=== PATIENT | female | born 1975 | race Two or more races ===

== ENCOUNTER → 2021-08-31 | Outpatient (CLI) | payer BC ==
[~2021-08-31] MED LIST: IBUP-1027 PO; OXYC-325 PO
== END ==
LOC: LAB 14:38
PROVIDERS: ATTEND Surgery
DX: Z01.812 Encounter for preprocedural laboratory examination (principal); Z20.822 Contact with and (suspected) exposure to COVID-19; K43.9 Ventral hernia without obstruction or gangrene
CPT/HCPCS: U0003; U0005

== ENCOUNTER 2021-09-03 11:28 | Day surgery (SDC) | payer BC ==
[~2021-09-03] VITALS: Ht 154.9 cm; Wt 85.0 kg
[~2021-09-03 11:28] MED LIST changes: +HYDROmorphone 2 MG/ML INJ. IVP PRN; +IV RINGERS,LACTATED 1000ML 1,000 ML IV SCH; +MORPHINE SULFATE 2 MG/ML INJ. IVP PRN; -OXYC-325 PO; +PROCHLORPERAZINE 10 MG/2 ML VIAL. IVP PRN; +fentaNYL PF VIAL 100 MCG/2 ML VIAL IVP PRN
[2021-09-03 12:06] VITALS: BP 109/70
[2021-09-03] MEDS ORDERED: ROCURONIUM 50 MG/5 ML VIAL. ONE (12:46)
[2021-09-03] MEDS ORDERED: fentaNYL PF VIAL 100 MCG/2 ML VIAL ONE ×2 (12:48→15:45)
[2021-09-03] MEDS ORDERED: MIDAZOLAM HCL/PF 2 MG/2 ML VIAL. ONE (12:48)
[2021-09-03] MEDS ORDERED: PROPOFOL 10 MG/ML (20ML) VIAL. IV ONE ×2 (12:52→15:06)
[2021-09-03] MEDS ORDERED: ONDANSETRON PF 4 MG/2 ML VIAL. ONE (12:52)
[2021-09-03] MEDS ORDERED: KETAMINE HCL IN NACL, ISO-OSM 50 MG/5 ML SYRINGE ONE (14:07)
[2021-09-03] MEDS ORDERED: DEXAMETHASONE SOD PHOS 4 MG/ML VIAL ONE (14:18)
[2021-09-03] MEDS ORDERED: KETOROLAC 30 MG/ML VIAL. ONE (14:30)
[2021-09-03] MEDS ORDERED: GLYCOPYRROLATE 1 MG/5 ML VIAL. ONE (14:55)
[2021-09-03] MEDS ORDERED: NEOSTIGMINE 10 MG/10 ML VIAL. ONE (14:55)
[2021-09-03] MEDS ORDERED: BUPIVACAINE-EPI 0.5% 30 ML VIAL KIT. ONE (15:00)
--- NOTE | 2021-09-03 15:11 | PDOC4 ---
Operative Note Operative Note Operative Note: Preoperative Diagnosis: Ventral hernia Postoperative Diagnosis: Same Procedure: Ventral hernia repair with mesh Surgeon: Bhupendra Supervisor Instrument Mechanics: SHERRIE Ramirez, Fer Bell MS 3 Anesthesia: General EBL: 10 mL Specimen: None Drains: None Complications: None Indication: The patient is a 46-year-old female who was referred following evaluation for abdominal pain. A CT scan was performed that described a small periumbilical hernia containing fat. This appears to be related due to prior laparoscopic surgery with a small incisional hernia defect at the umbilical trocar site. She was offered surgical repair. The risks of surgery were discussed which include bleeding, infection, recurrence, pain, anesthetic risk, wound healing problems, mesh complications, potential need for additional surg namita or procedure. She understands and would like to proceed. Description: The patient was taken to the operating room and placed supine in the operating table. General anesthesia was performed. The abdomen was prepped with ChloraPrep and draped with sterile towels, sheets, and an Ioban. A curved infraumbilical incision was made in the skin with a scalpel. Cautery dissection was carried down to the fascia. The umbilical tissue was elevated off the fascia exposing a small hernia defect. We extended the dissection circumferentially for better visualization and no other hernia defects were noted. A preperitoneal plane was developed at the small hernia defect using blunt dissection. A small Ventralex ST mesh was placed in the preperitoneal plane. The mesh was sutured into position with 0 Prolene in a horizontal mattress fashion. The fascial edges were closed over the mesh with 0 Prolene. The umbilicus was secured back to the fascia with 0 Vicryl. The subcutaneous tissue was closed with 3-0 Vicryl. The skin was approximated with 4 Monocryl. Incision was infiltrated with half percent Marcaine with epinephrine. Steri- Strips and a sterile dressing were applied. The patient tolerated the procedure well and was sent to the recovery room in stable condition. At the end of the case all counts were correct. CRUZ RODRIGUEZ MD Sep 03, 2021 15:11
[2021-09-03] MEDS ORDERED: OXYC-325 PO (15:13)
--- NOTE | 2021-09-03 15:14 | DISCH ---
DISCHARGE INSTRUCTIONS Condition on Discharge Condition on Discharge: Stable Activity After Discharge Activity Instructions for Disc: Other, see below (No lifting over 20 lbs or strenuous activity X 4 weeks) Driving Instructions after Dis: Other, see below (No driving while taking pain meds) Diet after Discharge Diet after Discharge: Regular Wound Incision Care Wound/Incision Care: Other, see below (Keep dressing clean and dry X 72 hours, may then remove and shower) Follow-Up Follow up with: Dr Rodriguez in 2 weeks in office, call for appointment [phone] CRUZ RODRIGUEZ MD Sep 03, 2021 15:14
[2021-09-03] MEDS: fentaNYL PF VIAL 100 MCG/2 ML VIAL IVP PRN ×2 (15:46→16:08)
[2021-09-03] MEDS ORDERED: oxyCODONE/APAP 5/325 1 TAB TABLET PO ONE (16:15)
[2021-09-03 16:27] VITALS: BP 107/65
== END 2021-09-03 17:02 | disposition home or self-care (01) ==
LOC: SURG 11:28
PROVIDERS: ATTEND Surgery
DX: K43.9 Ventral hernia without obstruction or gangrene (principal); K21.9 Gastro-esophageal reflux disease without esophagitis; Z90.49 Acquired absence of other specified parts of digestive tract; Z98.890 Other specified postprocedural states; Z79.899 Other long term (current) drug therapy; Z72.89 Other problems related to lifestyle
CPT/HCPCS: 49560; 49568; 81025; A4209; A4364; A4930; A6402; C1781; J0690; J1100; J1885; J2250; J2405; J2704; J2710; J3010; J3490; A4223; A4452